=== PATIENT | male | born 1985 | race Caucasian/White ===

== ENCOUNTER 2017-06-30 13:06 | Emergency (ER) | payer OTHER ==
[~2017-06-30] VITALS: Ht 198.1 cm; Wt 189.0 kg
[~2017-06-30 13:06] MED LIST: ALL220TA PO; CLON0.2T PO; CYCL-36 PO; DIOV320T6 PO; FURO20 PO; GLUC250C5 PO; IBUP600T26 PO; K-TA10TA5 PO; TAB-TAB PO; TRIA.1%T TOP
[2017-06-30 13:11] VITALS: BP 140/67; PULSE 89; RESP 18; TEMP 97.8; O2SAT 98
[2017-06-30] MEDS ORDERED: APIX5TAB PO (13:17)
[2017-06-30] MEDS ORDERED: DIOV320T3 PO (13:17)
[2017-06-30] MEDS ORDERED: FURO1TAB62 PO (13:17)
--- NOTE | 2017-06-30 13:46 | PD ---
Physical Exam Narrative I, Dr. Cook, have reviewed the advance practice practitioner's documentation and am in agreement, met with the patient face to face, made the diagnosis, and the medical decision making was done by me. *My assessment and Findings: Patient is a 32 year old male who comes in complaining of bleeding from his left lower leg. This happened while he was at work and it was bandaged. Currently, bleeding has stopped. Data Data Last Documented VS Vital Signs Date Time Temp Pulse Resp B/P (MAP) Pulse Ox O2 Delivery O2 Flow Rate FiO2 06/30/17 14:30 97.7 76 16 130/78 (95) 99 06/30/17 13:15 Room Air Orders Orders Wound Care (06/30/17 13:46) Ed Discharge Order (06/30/17 14:29) MDM Supervised Visit with VALERIA: Yes Narrative Course There is no bleeding currently. There is no open wound. Bulky dressing applied to provide a buffer to his varicose veins. Advised to follow up with his doctors. Advised to return as needed for any worsening symptoms. Diagnosis Primary Impression: Bleeding from varicose vein Leyla Cook MD Jun 30, 2017 13:46
--- NOTE | 2017-06-30 13:53 | PD ---
HPI Chief Complaint: Bleeding Time Seen by Provider: 13:38 Travel History International Travel<30 days: No Contact w/Intl Traveler<30days: No Traveled to known affect area: No History of Present Illness HPI 32-year-old male presents emergency department from work for evaluation of a left lower extremity wound that started bleeding while he was at work today. Patient states that he was walking when he noticed a puddle of blood on the floor was evaluated by the medical staff where they recommended he come to the emergency department for evaluation. Patient states that they were applied multiple layers of gauze and applied pressure this actually stopped the bleeding on site. Says he is on Eliquis (for 2 days) for DVT in the same leg and is due to have some vein stripping next week. He has no other complaints today. PFSH Past Medical History Hx Anticoagulant Therapy: Yes (eliquis) Asthma: Yes Cancer: No Cardiovascular Problems: Yes Diabetes: No Diminished Hearing: No Endocrine: No Gastrointestinal Disorders: Yes (HX OF STOMACH ULCERS) Genitourinary: No Hepatitis: No Hiatal Hernia: No Hypertension: Yes (HYPERTENSION) Immune Disorder: No Medical other: Yes (EDEMA ISIAH LOWER EXTREMITIES) Musculoskeletal: Yes (PAIN IN LOWER AND MIDDLE BACK, ISIAH KNEE PAIN) Neurologic: Yes (HX OF MIGRAINES -- NO LONGER CURRENT) Psychiatric: No Reproductive: No Respiratory: Yes (ASTHMA A CHILD) Thyroid Disease: No Tetanus Vaccination: > 5 Years Influenza Vaccination: No Past Surgical History Abdominal Surgery: Yes (INGUINAL HERNIA REPAIR 1987) AICD: No Body Medical Devices: BULLETT FRAGMENTS L KNEE Cardiac Surgery: No Ear Surgery: No Endocrine Surgery: No Eye Surgery: No Genitourinary Surgery: No Gynecologic Surgery: No Joint Replacement: No Oral Surgery: No Pacemaker: No Thoracic Surgery: No Other Surgery: Yes Social History Alcohol Use: No Tobacco Use: No Substance Use: No Allergies-Medications (Allergen,Severity, Reaction): Coded Allergies: cefaclor (Verified Allergy, Severe, rash, 06/30/17) Reported Meds & Prescriptions Reported Meds & Active Scripts Active Reported Lasix (Furosemide) 20 Mg Tab 20 Mg PO DAILY Diovan Hct (Valsartan-Hydrochlorothiazide) 320-12.5 Mg Tab 1 Tab PO DAILY Eliquis (Apixaban) 5 Mg Tab 5 Mg PO BID Review of Systems Except as stated in HPI: all other systems reviewed are Neg Physical Exam Narrative GENERAL: Well-nourished, well-developed patient. SKIN: Focused skin assessment warm/dry. HEAD: Normocephalic. EYES: No scleral icterus. No injection or drainage. NECK: Supple, trachea midline. No JVD or lymphadenopathy. MUSCULOSKELETAL: No cyanosis, or edema. LLE- 4cm ulcer of medial aspect of mid mercado. no bleeding noted. no discharge from site. BACK: Nontender without obvious deformity. No CVA tenderness. Psych: appropriate mood Data Data Last Documented VS Vital Signs Date Time Temp Pulse Resp B/P (MAP) Pulse Ox O2 Delivery O2 Flow Rate FiO2 06/30/17 14:30 97.7 76 16 130/78 (95) 99 06/30/17 13:15 Room Air Orders Orders Wound Care (06/30/17 13:46) Ed Discharge Order (06/30/17 14:29) MDM Medical Decision Making Medical Screen Exam Complete: Yes Emergency Medical Condition: Yes Differential Diagnosis LLE ulcer, varicose vein bleed, laceration Narrative Course 32-year-old male presents emergency department from work for evaluation of a left lower extremity wound that started bleeding while he was at work today. Patient states that he was walking when he noticed a puddle of blood on the floor was evaluated by the medical staff where they recommended he come to the emergency department for evaluation. Patient states that they were applied multiple layers of gauze and applied pressure this actually stopped the bleeding on site. Says he is on Eliquis (for 2 days) for DVT in the same leg and is due to have some vein stripping next week. He has no other complaints today. Vital signs are stable. Exam findings demonstrate an ulcer to the left lower extremity. No active bleeding or discharge. Dr. Cook and I evaluated this patient together and it appears that the bleeding has ceased. Will walk him in the ED to determine the stability of this. Pt walked in the ED without reinjury or rebleeding. Patient advised to follow with the refrigeration installer and consider vascular or vein specialist for further evaluation. Diagnosis Primary Impression: Bleeding from varicose vein Referrals: Vascular Surgeon Additional Instructions: Follow up with your refrigeration installer as discussed. Consider a vein specialist for your varicose veins. Keep firm pressure on the area and avoid trauma. If bleeding begins again, apply pressure, plenty of bulky gauze, and elevate the leg. Disposition: 01 DISCHARGE HOME Condition: Stable Doris Bee Jun 30, 2017 13:53
[2017-06-30 14:30] VITALS: BP 130/78; TEMP 97.7
== END 2017-06-30 14:30 | disposition home or self-care (01) ==
LOC: NEPC 13:06
DX: I83.892 Varicose veins of left lower extremity with other complications (principal); L97.929 Non-pressure chronic ulcer of unspecified part of left lower leg with unspecified severity; I10 Essential (primary) hypertension; Z79.01 Long term (current) use of anticoagulants; Z87.09 Personal history of other diseases of the respiratory system; Z86.79 Personal history of other diseases of the circulatory system; Z87.39 Personal history of other diseases of the musculoskeletal system and connective tissue
CPT/HCPCS: 99282